=== PATIENT | male | born 1990 | race Caucasian/White ===

== ENCOUNTER 2020-11-09 19:20 | Emergency (ER) | payer SELFPAY ==
[~2020-11-09] VITALS: Ht 170.2 cm; Wt 63.5 kg
[2020-11-09 19:30] VITALS: BP_SYST 146
[2020-11-09 20:26] LABS: BILIRUBIN,URINE NEGATIVE (NEGATIVE); BLOOD, URINE NEGATIVE (NEGATIVE); CLARITY/URINE CLEAR (CLEAR); COLOR,URINE YELLOW (YELLOW); GLUCOSE,URINE NEGATIVE (NEGATIVE); KETONES,URINE NEGATIVE (NEGATIVE); LEUKOCYTE ESTERASE ,URINE NEGATIVE (NEGATIVE); NITRITE, URINE NEGATIVE (NEGATIVE); PROTEIN URINE NEGATIVE (NEGATIVE); UROBILINOGEN,URINE 0.2 (0.2-1.0)
[2020-11-09 20:38] LABS: BASOPHILS # (AUTO) 0.1 K/uL (0.0-0.2); EOSINOPHILS # (AUTO) 0.1 K/uL (0.0-0.4); EOSINOPHILS % (AUTO) 2.3 % (0.0-4.0); HEMATOCRIT 47.3 % (36-54); HEMOGLOBIN 16.1 g/dL (14.0-18.0); LYMPHOCYTES # (AUTO) 1.5 K/uL (1.0-5.5); LYMPHOCYTES % (AUTO) 24.6 % (20.5-51.5); MEAN CORPUSCULAR HEMOGLOBIN 32 pg (27-31); MEAN CORPUSCULAR HGB CONC 34 % (32-36); MEAN CORPUSCULAR VOLUME 95 fL (79.0-98.0); MONOCYTES # (AUTO) 0.6 K/uL (0.0-1.0); MONOCYTES % (AUTO) 10.5 % (1.7-9.3); NEUTROPHILS # (AUTO) 3.7 K/uL (1.8-7.7); NEUTROPHILS % (AUTO) 61.6 % (40.0-70.0); PLATELET COUNT (AUTO) 244 K/uL (130-430); RED CELL DISTRIBUTION WIDTH 14.1 % (9.0-15.0)
[2020-11-09 20:44] LABS: CANNABINOID, URINE NEGATIVE (NEG <=50); COCAINE, URINE POSITIVE (NEG <=150); METHAMPHETAMINES SCREEN,URINE POSITIVE (NEG <=500); PHENCYCLIDINE SCREEN,URINE NEGATIVE (NEG <=25); URINE AMPHETAMINE POSITIVE (NEG <=500)
[2020-11-09 20:45] LABS: BARBITURATE, URINE NEGATIVE (NEG <=200); BENZODIAZEPINE, URINE NEGATIVE (NEG <=150); OPIATE, URINE NEGATIVE (NEG <=100); UR TRICYCLIC ANTIDEPRESSANTS NEGATIVE (NEG <=300); URINE METHADONE NEGATIVE (NEG <=200); URINE OXYCODONE SCREEN NEGATIVE (NEG <=100); URINE PROPOXYPHENE SCREEN NEGATIVE (NEG <=300)
[2020-11-09 20:54] LABS: ANION GAP 9 (5-15); CALCIUM 8.8 mg/dL (8.4-11.0); CHLORIDE 102 mmol/L (98-107); CREATININE 1.04 mg/dL (0.55-1.30); GLUCOSE 90 mg/dL (70-99); POTASSIUM 3.6 mmol/L (3.5-5.1); SODIUM SERUM 139 mmol/L (136-145); UREA NITROGEN, BLOOD 16 mg/dL (8-21)
[2020-11-09 20:59] LABS: GFR AFRICAN AMERICAN 107 mL/min (>90)
[2020-11-09 21:08] LABS: ALANINE AMINOTRANSFERASE 27 U/L (12-78); ALBUMIN 3.8 g/dL (3.4-4.8); ASPARTATE AMINOTRANSFERASE 22 U/L (10-37); THYROID STIMULATING HORMONE 2.12 uIu/mL (0.36-3.74); TOTAL BILIRUBIN 0.7 mg/dL (0.0-1.0)
[2020-11-09 21:15] LABS: ALCOHOL, BLOOD < 3 mg/dL (<10)
== END 2020-11-09 22:45 | disposition home or self-care (01) ==
LOC: SED 19:20
DX: F14.90 Cocaine use, unspecified, uncomplicated (principal); F15.90 Other stimulant use, unspecified, uncomplicated; R45.1 Restlessness and agitation; Z79.899 Other long term (current) drug therapy
CPT/HCPCS: 36415; 80053; 80307; 81003; 84443; 85025; 99283; G0482

== ENCOUNTER 2021-02-12 23:50 | Emergency (ER) | payer SELFPAY ==
[~2021-02-12] VITALS: Ht 170.2 cm; Wt 66.2 kg
[2021-02-12 23:57] VITALS: BP_SYST 131
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
--- NOTE | 2021-02-13 00:56 | NUR ---
ER at bedside examining patient.
[2021-02-13] MEDS ORDERED: NACL 0.9% 1,000 ML IV ONE (01:15)
[2021-02-13] MEDS ORDERED: DIPHENHYDRAMINE INJ 50 MG/ML VIAL IVP ONE (01:15)
[2021-02-13] MEDS ORDERED: LORazepam 2 MG/ML VIAL IVP ONE (01:15)
--- NOTE | 2021-02-13 01:51 | NUR ---
# 20 gauge angiocath placed to LAC. Use of asceptic technique. Opsite placed over site. Blood return noted. Blood for lab drawn from site. Flushed with 10 cc of normal saline. No evidence of infiltration noted. Patient tolerated well.
[2021-02-13 01:59] LABS: BASOPHILS % (AUTO) 0.3 % (0.0-2.0); EOSINOPHILS # (AUTO) 0.1 K/uL (0.0-0.4); EOSINOPHILS % (AUTO) 0.6 % (0.0-4.0); HEMATOCRIT 48.5 % (36-54); HEMOGLOBIN 16.6 g/dL (14.0-18.0); LYMPHOCYTES % (AUTO) 7.4 % (20.5-51.5); MEAN CORPUSCULAR HEMOGLOBIN 32 pg (27-31); MEAN CORPUSCULAR HGB CONC 34 % (32-36); MEAN CORPUSCULAR VOLUME 94 fL (79.0-98.0); MONOCYTES # (AUTO) 0.8 K/uL (0.0-1.0); MONOCYTES % (AUTO) 5.9 % (1.7-9.3); NEUTROPHILS # (AUTO) 11.8 K/uL (1.8-7.7); NEUTROPHILS % (AUTO) 85.8 % (40.0-70.0); PLATELET COUNT (AUTO) 270 K/uL (130-430); RED BLOOD CELL COUNT(AUTO) 5.14 MIL/uL (4.2-6.2); RED CELL DISTRIBUTION WIDTH 13.7 % (9.0-15.0); WHITE BLOOD COUNT (AUTO) 13.7 K/uL (4.8-10.8)
[2021-02-13 02:01] LABS: PROTHROMBIN TIME 10.3 SECS (9.5-12.5)
[2021-02-13 02:09] LABS: ANION GAP 21 (5-15); CALCIUM 9.5 mg/dL (8.4-11.0); CHLORIDE 98 mmol/L (98-107); CREATININE 1.29 mg/dL (0.55-1.30); GLUCOSE 100 mg/dL (70-99); POTASSIUM 3.7 mmol/L (3.5-5.1); SODIUM SERUM 138 mmol/L (136-145); UREA NITROGEN, BLOOD 20 mg/dL (8-21)
[2021-02-13 02:10] LABS: GFR AFRICAN AMERICAN 84 mL/min (>90)
[2021-02-13 02:15] LABS: ALANINE AMINOTRANSFERASE 31 U/L (12-78); ALBUMIN 4.4 g/dL (3.4-4.8); ASPARTATE AMINOTRANSFERASE 26 U/L (10-37); TOTAL BILIRUBIN 1.2 mg/dL (0.0-1.0)
[2021-02-13 02:20] LABS: ALCOHOL, BLOOD < 3 mg/dL (<10)
--- NOTE | 2021-02-13 03:00 | NUR ---
PT PLced in soft restraints for erratic behaviour. pt verbalized understanding
[2021-02-13 03:51] LABS: BILIRUBIN,URINE NEGATIVE (NEGATIVE); BLOOD, URINE NEGATIVE (NEGATIVE); CLARITY/URINE CLEAR (CLEAR); COLOR,URINE YELLOW (YELLOW); GLUCOSE,URINE NEGATIVE (NEGATIVE); KETONES,URINE 2+ (NEGATIVE); LEUKOCYTE ESTERASE ,URINE NEGATIVE (NEGATIVE); NITRITE, URINE NEGATIVE (NEGATIVE); PH,URINE 5.5 (5.0-8.0); PROTEIN URINE TRACE (NEGATIVE); UROBILINOGEN,URINE 0.2 (0.2-1.0)
--- NOTE | 2021-02-13 04:00 | NUR ---
pt resting comfortably. awaiting further MD orders
[2021-02-13 04:12] LABS: BARBITURATE, URINE NEGATIVE (NEG <=200); BENZODIAZEPINE, URINE POSITIVE (NEG <=150); CANNABINOID, URINE NEGATIVE (NEG <=50); COCAINE, URINE POSITIVE (NEG <=150); METHAMPHETAMINES SCREEN,URINE POSITIVE (NEG <=500); OPIATE, URINE NEGATIVE (NEG <=100); PHENCYCLIDINE SCREEN,URINE NEGATIVE (NEG <=25); UR TRICYCLIC ANTIDEPRESSANTS NEGATIVE (NEG <=300); URINE AMPHETAMINE POSITIVE (NEG <=500); URINE METHADONE NEGATIVE (NEG <=200); URINE OXYCODONE SCREEN NEGATIVE (NEG <=100); URINE PROPOXYPHENE SCREEN NEGATIVE (NEG <=300)
--- NOTE | 2021-02-13 05:14 | NUR ---
urine test ordered
--- NOTE | 2021-02-13 06:19 | NUR ---
PT RESTING COMFORTABLY AND REMAINS IN RESTRAINTS.
--- NOTE | 2021-02-13 07:20 | NUR ---
Report recieved from [facility].
--- NOTE | 2021-02-13 07:45 | NUR ---
Pt asleep in [facility] no distress noted at this time.
--- NOTE | 2021-02-13 11:11 | NUR ---
Pt asleep in [facility] no distress noted at this time.
--- NOTE | 2021-02-13 11:58 | NUR ---
Pt asleep in [facility] no distress noted at this time. Breathing is even and unlabored.
--- NOTE | 2021-02-13 12:50 | NUR ---
Pt awake and Alert and calm. Pt requesting to leave. Pt states he feels better.
--- NOTE | 2021-02-13 12:52 | NUR ---
ER at bedside examining patient.
[2021-02-13 13:09] VITALS: BP_SYST 134
--- NOTE | 2021-02-13 13:09 | NUR ---
Patient given written and verbal discharge instructions and verbalizes understanding. Given copies of tests performed during visit. Patient is awake, alert and oriented. Ambulatory with steady gait. Refuses offer of skilled nursing placement. Given list of available shelters in surrounding areas.
== END 2021-02-13 13:09 | disposition home or self-care (01) ==
LOC: SED 23:50
DX: F19.90 Other psychoactive substance use, unspecified, uncomplicated (principal); Z20.822 Contact with and (suspected) exposure to COVID-19; Z79.899 Other long term (current) drug therapy
CPT/HCPCS: 36415; 71045; 80053; 80307; 81003; 84484; 85025; 85610; 85730; 87426; 93005; 96361; 96374; 96375; 99285; G0482; J1200; J2060; J7030